=== PATIENT | male | born 1960 | race Caucasian/White ===

== ENCOUNTER 2023-12-04 01:55 | Emergency (ER) | payer BC, SELFPAY ==
[2023-12-04 01:56] VITALS: BP 145/83; PULSE 85; RESP 16; TEMP 36.1; O2SAT 97; BMI 29.8
--- NOTE | 2023-12-04 02:30 | XR_ITS ---
Patient: ARELIS FIELDS Facility:?[facility] Patient ID:?[id number] Site Patient ID:?[id number]. Site :?[id number] Study:?XRay-Chest PORTABLE-12/04/2023 3:08:14 AM Ordering Physician:MARA Final Report: INDICATION: Palpitations. TECHNIQUE: Chest 1 view. COMPARISON: None. FINDINGS: Cardiovascular and mediastinum: Heart size and vasculature are normal in caliber and appearance. Lungs and pleural spaces: Lungs are clear. No sign of infiltrate or mass. No sign of pleural effusion. No pneumothorax. Bones and soft tissues: No significant findings. IMPRESSION: Unremarkable chest. Dictated by Fortino Flower MD @ 12/04/2023 3:10:02 AM Signed by:?Fortino Flower MD @12/04/2023 3:10:02 AM (Electronic Signature)
--- NOTE | 2023-12-04 03:55 | ED_ITS ---
HPI - General Adult General Date Seen: 12/04/23 Chief complaint: Unspecified Complaint, Adult Stated complaint: Irregular Heartbeat Time Seen by Provider: 12/04/23 03:55 Source: patient and RN notes reviewed Mode of arrival: ambulatory Limitations: no limitations History of Present Illness HPI narrative: Note this note was dictated after patient was seen, labs ordered and return during expanse down time. Patient is a very pleasant gentleman with history of hyperlipidemia, hypertension who comes to the emergency room with a feeling of fluttering in his chest that he describes as an electrical glitch feeling.? Ash noted the onset of this last evening while at home at rest.? He describes a similar feeling greater than 10 years ago at which time caffeine was blamed.? After that event, he did have a stress test that was normal.? He does drink 2/3 of a pot of coffee during the day.? He denies any drug use, energy drinks.? He did have 1 beer last evening.? Ash has otherwise been well and denies any cough cold or congestion.? He does note that he has been dealing with some right sided low back pain. Back pain is been ongoing for almost a year. He does have a history of cervical arthritis.? He recently started gabapentin.? States he has only taken 2 doses. 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 Denies calf tenderness or history of DVT. Review of Systems Status of ROS: Reports: 10 or more systems reviewed and unremarkable except as noted in History and below Exam Narrative: Exam Narrative: Alert and oriented. No acute distress. Mentation normal. External ears eyes nose normal. Heart with regular rate and rhythm. I do not auscultate any murmurs rubs or additional heartbeats. Patient is stating that he is feeling something and I look on the monitor in appears to be normal sinus rhythm. Lungs are clear bilaterally. Abdomen soft nontender without pulsating mass. Lower extremities without edema. Pedal pulses are symmetrical and intact. Moving all extremities. Const: Vital Signs, click to edit/add: Vital Signs - 24 hr 12/04/23 05:34 Pulse Rate [Left] 84 Respiratory Rate 18 Blood Pressure [Ri ght Upper Arm] 148/95 H Pulse Oximetry 97 Oxygen Delivery Me thod Room Air Documenting provider has reviewed patient's vital signs: yes Course Course ED Course: Differential diagnosis includes but is not limited to cardiac arrhythmia, PVC, anxiety, pneumonia, PE, aortic dissection. Patient appears stable at this time with reassuring blood pressure 145/83 and a pulse of 85. classroom monitor appears to show a sinus rhythm. I do not see any evidence of arrhythmia. Patient with normal oxygen saturation at 97%. Will check EKG, troponin, chest x-ray, continue classroom monitor, CBC, comprehensive panel, TSH, magnesium. Reevaluation(s) Reevaluation #1: Patient continues to be in sinus rhythm. Initial troponin is negative. EKG reassuring with sinus rhythm. Her labs at this time include potassium of 3.9, creatinine of 1.1, LFTs within normal limits, hemoglobin of 14.3, negative troponin, TSH at 3.01, magnesium of 2.1 and a CRP within normal limits. Recheck EKG and troponin at this time. Vital Signs Vital signs: Initial Vital Signs Pulse Rate 84 12/04/23 05:34 Pulse Rhythm Regular 12/04/23 05:34 Respiratory Rate 18 12/04/23 05:34 Respiratory Effort Normal, Spontaneous 12/04/23 05:34 Respiratory Depth Normal 12/04/23 05:34 Blood Pressure 148/95 H 12/04/23 05:34 Blood Pressure Mean 112 H 12/04/23 05:34 Blood Pressure Position Semi-Fowlers 12/04/23 05:34 Pulse Oximetry 97 12/04/23 05:34 Oxygen Delivery Method Room Air 12/04/23 05:34 Vital Signs Pulse Rate 84 12/04/23 05:34 Respiratory Rate 18 12/04/23 05:34 Blood Pressure 148/95 H 12/04/23 05:34 Pulse Oximetry 97 12/04/23 05:34 Oxygen Delivery Method Room Air 12/04/23 05:34 Pulse Rate 84 12/04/23 05:34 Respiratory Rate 18 12/04/23 05:34 Blood Pressure 148/95 H 12/04/23 05:34 Pulse Oximetry 97 12/04/23 05:34 Oxygen Delivery Method Room Air 12/04/23 05:34 Medical Decision Making [place] Narrative Medical decision making narrative: 1. Palpitations-no irregularity noted on EKG your during cardiac monitoring. Troponins reassuring at this time. Magnesium within normal limits. D-dimer within normal limits. Recommend decreasing caffeine intake and increasing fluid intake. Follow-up with primary MD for cardiac monitoring such as with a ZIO patch for per primary MD recommendation. 2. Disposition-home at this time. Return for worsening symptoms and as needed. Medical Records Medical records reviewed: Yes I reviewed the patient's medical records Lab Data Lab results reviewed: Yes I reviewed the patient's lab results Labs: Lab Results 12/04/23 12/04/23 12/04/23 Range/Units 02:20 02:30 04:38 WBC 9.35 (4.50-11.00) K/uL RBC 4.59 (4.30-5.90) m/uL Hgb 14.3 (13.5-17.5) gm/dL Hct 41.8 (37.0-53.0) % MCV 91 (80-100) fL MCH 31 (26-34) pg MCHC 34 (32-36) gm/dL Plt Count 230 (140-440) K/uL Neut % (Auto) 49.7 (42.0-72.0) % Lymph % (Auto) 35.0 (20-44) % [place] % (Auto) 11.8 H (0.0-11.0) % Eos % (Auto) 1.9 (0.0-7.0) % Baso % (Auto) 0.2 (0.0-3.0) % Neut # (Auto) 4.60 (1.7-7.0) K/uL Lymph # (Auto) 3.30 H (0.90-2.90) K/uL [place] # (Auto) 1.10 H (0.00-0.90) K/UL Eos # (Auto) 0.20 (0.00-0.50) K/uL Baso # (Auto) 0.00 (0.00-0.30) K/uL Sodium 138 (135-149) mmol/L Potassium 3.9 (3.6-5.1) mmol/L Chloride 106 (96-114) mmol/L Carbon Dioxide 23 (20-32) mmol/L Anion Gap 9 (7-15) mEq/L BUN 28 (7-30) mg/dL Creatinine 1.1 (0.5-1.5) mg/dL Estimated GFR 76 ml/min Glucose 106 (60-115) mg/dL Calcium 9.0 (8.4-10.6) mg/dL Magnesium 2.1 (1.5-2.6) mg/dL Total Bilirubin 0.4 (0.1-1.5) mg/dL AST 36 H (12-35) U/L ALT 40 (4-50) U/L Alkaline Phosphatase 56 (40-150) U/L Troponin I < 0.01 L (0.01-0.04) ng/mL C-Reactive Protein < 0.5 L (0.5-1.0) mg/dL Total Protein 6.9 (6.0-8.3) g/dL Albumin 4.3 (3.3-5.0) g/dL TSH 3.010 (0.270-4.20) uIU/mL POC Troponin I 0.00 L (0.01-0.04) ng/ml Imaging Data Chest x-ray: Attestation: I have reviewed the pertinent imaging results. My impression: By my read no acute findings. Radiologist's impression: Cardiovascular and mediastinum: Heart size and vasculature are normal in caliber and appearance. Lungs and pleural spaces: Lungs are clear. No sign of infiltrate or mass. No sign of pleural effusion. No pneumothorax. Bones and soft tissues: No significant findings. IMPRESSION: Unremarkable chest. ECG Data Attestation: I personally reviewed and interpreted this ECG as follows: Interpretation: EKG by my read shows sinus rhythm at a rate of 80. I do not note any acute ST or T-wave changes. QT and MD intervals within normal limits. EKG 2. Shows normal sinus rhythm at a rate of 80. No acute ST or T-wave changes noted. Normal MD and QT intervals. Discharge Plan Discharge Clinical Impression: Heart palpitations Patient Disposition: Home, Self-Care Condition: Improved Additional Instructions: Decrease amount of caffeine intake. Increase good fluids such as water, Gatorade, Powerade. With your primary MD at [facility] for evaluation to see if you need placement of a heart monitor. Return to the emergency room for worsening symptoms. Follow Up/Referrals: Provider,Not a Local [Primary Care Provider] - Stand Alone Forms: [employer] Info Instructions
--- OUTSIDE RECORDS SUMMARY | 2023-12-04 04:27 | XMS_ITS | Referral Summary ---
Author Organization [place] Address [address] [place] [address] Care Team Providers Care Supercalender Operator Name Role Phone Oscar Alford MD Primary Care Provide r Oscar Alford MD Unavailable Encounters Date Type Department Care Team Description 10/28/2023 Travel 10/28/2023 8:30 AM CDT Office Visit [facility] [address] [place] [address] Manuel Jarvis PA-C Skin lesion (Primary Dx); Benign essential hypertension; Mixed hyperlipidemia from Last 3 Months Allergies Active Allergy Reactions Criticality Noted Date Comments Erythromycin 03/30/2000 fainting Medications Medication Sig Dispensed Refills Start Date End Date Status XIIDRA 5 % opthalmic solution Apply 1 drop to eye 2 times daily 12/24/2019 Active multivitamin (CENTRUM SILVER) tablet Take 1 tablet by mouth daily 06/04/2021 Active omeprazole (PRILOSEC) [address] capsuleIndications:Gas troesophageal reflux disease without esophagitis Take 1 capsule (20 mg) by mouth daily 90 capsule 3 12/24/2022 Active RESTASIS 0.05 % ophthalmic emulsion Place 1 drop into both eyes daily 02/11/2023 Active cyclobenzaprine (FLEXERIL) 10 MG tabletIndications:Spas m of muscle of lower back Take 1 tablet (10 mg) by mouth 3 times daily as needed for muscle spasms 30 tablet 05/06/2023 Active losartan (COZAAR) 50 MG tabletIndications:Ángel gn essential hypertension Take 1 tablet (50 mg) by mouth daily 90 tablet 1 10/28/2023 Active simvastatin (ZOCOR) 20 MG tabletIndications:Mixe d hyperlipidemia Take 1 tablet (20 mg) by mouth at bedtime 90 tablet 1 10/28/2023 Active Active Problems Problem Noted Date Diagnosed Date Elevated fasting glucose 09/20/2017 Gastroesophageal reflux dise ase, esophagitis presence not specified 09/20/2017 Overview: IMO Regulatory Load DEC 2019 Erectile dysfunction, unspecified erectile dysfu nction type 09/20/2017 Obesity (BMI 30.0-34.9) 09/20/2017 Encounter for counseling 11/18/2012 Overview: Patient states has Advance Directive and will bring in a copy to clinic. Problem list name updated by automated process. Provider to review ACP (advance care planning) 10/02/2011 Overview: Claustrophobia 08/29/2010 Overview: Isolated fear in small enclosed spaces-OK for xanax prn if needs PERS HX URINARY CALCULI(aka STONES) 10/30/2003 Overview: Passed kidney stone 1993?? Memory loss 04/05/2002 Mixed hyperlipidemia 04/13/2000 Inguinal hernia 03/30/2000 Overview: Problem list name updated by automated process. Provider to review Family history of malignant neoplasm Overview: lymphoid tissue Problem list name updated by automated process. Provider to review Resolved Problems Problem Noted Date Diagnosed Date Resolved Date Health Group Home 11/18/2012 09/12/2023 Overview: State Tier Level: Tier 1 Status: n/a Tube Roller: n/a See Letters for [facility] Care Plan Abnormal glucose 09/20/2017 Overview: Problem list name updated by automated process. Provider to review Immunizations Name Administration Dates Next Due TD,PF 7+ (Tenivac) 03/20/2020,03/30/1998 TDAP Vaccine (Boostrix) 08/27/2009 Social History Tobacco Use Types Packs/Day Years Used Date Smoking Tobacco: Former Cigarettes 0 03/30/1994 - 03/30/1999 Passive Smoke Exposure: Past Smokeless Tobacco: Never Tobacco Cessation:Counseling Given: Not Answered Alcohol Use Standard Drinks/Week Comments Yes 6 (1 standard drink = 0.6 oz pur e alcohol) AUDIT-C Answer Date Recorded Q1: How often do you have a drink containing alc ohol? 2-3 times a week 03/20/2020 Q2: How many drinks containi ng alcohol do you have on a typical day when you are drinking? 1 or 2 03/20/2020 Q3: How often do you have si x or more drinks on one occasion? Never 03/20/2020 PHQ-2 Answer Date Recorded PHQ-2 Score 0 05/06/2023 Adolescent Education Answer Date Record ed Getting School Help Needed Not on file 12/24 Sex and Gender Information Value Date Recorded Sex Assigned at Not on file Gender Identity Not on file Sexual Orientation Not on file Last Filed Vital Signs Vital Sign Reading Time Taken Comments Blood Pressure 138/80 10/28/2023 8:28 AM CDT Pulse 80 10/28/2023 8:28 AM CDT Temperature 36.6 ??C (97.9 ??F) 10/28/2023 8:28 AM CD T Respiratory Rate 20 12/24/2022 8:07 AM CDT Oxygen Saturation 96% 10/28/2023 8:28 AM CDT Inhaled Oxygen Concentration - - Weight 103.9 kg (229 lb) 10/28/2023 8:28 AM CDT Height 179.1 cm (5' 10.5) 04/08/2023 10:[address] Body Mass Index 32.39 04/08/2023 10:55 AM PAPER CONTROL CLERK Plan of Treatment Not on file Procedures Procedure Name Priority Date/Time Associated Diagnosis Comments LIPID PANEL (BFP) Routine 05/06/2023 2:1 2 PM PAPER CONTROL CLERK Mixed hyperlipidemia COMPREHENSIVE METABOLIC PANEL (BFP) Routine 12/24/2022 Mixed hyperlipidemia HEPATITIS C ANTIBODY Routine 07/12/2016 11:38 AM CDT Need for hepatitis C screening test COLONOSCOPY - HIM SCAN Routine 04/23/2016 from Last 3 Months or Most Recently Relevant to Health Maintenance Results * Lipid Panel (BFP) (05/06/2023 2:12 PM PAPER CONTROL CLERK) Cholesterol 148 0 - 199 mg/dL [facility]NAL Triglycerides 65 0 - 149 mg/dL [facility] HDL Cholesterol 63 40 - 150 mg/dL [facility] LDL Cholesterol Direct 72 0 - 130 mg/dL [facility] Cholesterol/HDL Ratio 2 0 - 5 [facility] Blood 05/06/2023 2:12 PM PAPER CONTROL CLERK Manuel Jarvis PA-C LAB - [facility] * (ABNORMAL) Comprehensive Metobolic Panel (BFP) (12/24/2022) Carbon Dioxide 25.0 20 - 32 mmol/L [facility] Creatinine 1.06 0.60 - 1.30 mg/dL [facility] INTERNAL Glucose 116(A) 60 - 99 mg/dL [facility] INTERNAL Sodium 138.9 135 - 146 mmol/L [facility] INTERNAL Potassium 4.41 3.5 - 5.3 mmol/L [facility] INTERNAL Chloride 103.7 98 - 110 mmol/L [facility] Protein Total 7.3 6.1 - 8.1 g/dL [facility] Albumin 4.8 3.6 - 5.1 g/dL [facility] Alkaline Phosphatase 52 33 - 130 U/L [facility] ALT 62(A) 0 - 32 U/L [facility] AST 28 0 - 35 U/L [facility] Bilirubin Total 1.5(A) 0.2 - 1.2 mg/dL [facility] Urea Nitrogen 15 7 - 25 mg/dL [facility] Calcium 9.5 8.6 - 10.3 mg/dL [facility] BUN/Creatinine Ratio 14.2 6 - 32 [facility] Globulin Calculated 2.5 1.9 - 3.7 [facility] A/G Ratio 1.9 1 - 2.5 [facility] Blood 12/24/2022 Oscar Alford MD LAB - [facility] * Hepatits C antibody ([facility]) (07/12/2016 11:38 AM CDT) HCV Antibody NON-REACTI VE NON-REACTI VE [facility] SIGNAL TO CUT OFF - [facility] 0.06 <1.00 [facility] Blood specimen (specimen) 07/12/2016 11:38 AM CDT 07/13/2016 5:55 AM CDT Narrative Resulting Agency Comment Performing Organization Information: ? CB ? [facility] ? [address] [place] [address] ? Rico Aleman M.D. Oscar Alford MD LAB - BLOOD O RDERABLES [facility] [address] [place] [address] * Colonoscopy - HIM Scan (04/23/2016) Provider Outside PROCEDURES from Last 3 Months or Most Recently Relevant to Health Maintenance Care Teams Supercalender Operator Relationship Specialty Start Date End Date Oscar Alford MD PCP - General Family Practice 11/12/11 Oscar Alford MD [address], [id number] [place] [address] Assigned PCP 09/24/18
--- OUTSIDE RECORDS SUMMARY | 2023-12-04 04:27 | XMS_ITS | Encounter Summary ---
Author Organization [place] Address [address] [place] [address] Care Team Providers Care Hvac R Tech Name Role Phone Oscar Alford MD Primary Care Provide r Oscar Alford MD Unavailable [phone] Reason for Referral * Consultation (Routine: Next available opening) - Pending Review Specialty Diagnoses / Procedures Referred By Lillie colindres Referred To Contact Dermatology Diagnoses Skin lesion Christen Jarvis PA-C [address] [place] [address] [facility] (REF'L) [address] [address] Referral ID Status Reason Start Date Expiration Date V isits Requested Visits Authorized [id number] Pending Review 10/28/2023 10/27/2024 1 1 Question Answer Additional Information: ongoing skin lesions in jean, spreading and worsening. Needs new consult Comments Please be aware that coverage of these services is subject to the terms and limitations of your health insurance plan. Call member services at your health plan with any benefit or coverage questions. Reason for Visit * Reason Comments Recheck Medication Refill medications, fasting today Referral Referral to dermatol ogist for his face and lesion on his lip Encounter Details Date Type Department Care Team (Latest Contact Info) Description 10/28/2023 8:30 AM CDT Office Visit [facility] [address] [place] [phone] Christen Jarvis PA-C [address] [place] [address] Skin lesion (Primary Dx); Benign essential hypertension; Mixed hyperlipidemia Social History Tobacco Use Types Packs/Day Years [...] on file Sexual Orientation Not on file documented as of this encounter Last Filed Vital Signs Vital Sign Reading Time Taken Comments Blood Pressure 138/80 10/28/2023 8:28 AM CDT Pulse 80 10/28/2023 8:28 AM CDT Temperature 36.6 ??C (97.9 ??F) 10/28/2023 8:28 AM CD T Respiratory Rate - - Oxygen Saturation 96% 10/28/2023 8:28 AM CDT Inhaled Oxygen Concentration - - Weight 103.9 kg (229 lb) 10/28/2023 8:28 AM CDT Height - - Body Mass Index 32.39 04/08/2023 10:55 AM DRAFTING CLERK documented in this encounter Progress Notes * Christen Jarvis PA-C - 10/28/2023 8:30 AM CDT Assessment & Plan Benign essential hypertension - stable, pt's at home readings are within range, refilled without change Low Na diet - losartan (COZAAR) 50 MG tablet Dispense: 90 tablet; Refill: 1 Mixed hyperlipidemia - stable, most recent lipid panel within range, refilled without change Recommend diet and exercise as able with current lifestyle - simvastatin (ZOCOR) 20 MG tablet Dispense: 90 tablet; Refill: 1 Skin lesion - ongoing without diagnosis by previous Shop Girl 7 years ago, will refer to new provider for new assessment - Adult Dermatology Shrimp Header Referral - To a [facility] Location (Use POS/Location) Follow up 6 months OV-labs at that time No follow-ups on file. Subjective Ash is a 62 year old, presenting for the following health issues: Recheck Medication (Refill medications, fasting today ) and Referral (Referral to weather algorithm scientist forhis face and lesion on his lip ) HPI Pt presents for hyperlipidemia and HTN follow-up. Diet and exercise could be better but are stable.Is hoping to retire within the next couple of years so he will be able to improve his diet and exercise then. Hyperlipidemia Follow-Up Are you regularly taking any medication or supplement to lower your cholesterol? Yes - taking 5-6 times a week-simvastatin Are you having muscle aches or other side effects that you think could be caused by your cholesterol lowering medication? Back pain is stable, going to PT without significant benefit Hypertension Follow-up Do you check your blood pressure regularly outside of the clinic? Yes - checking every now and thenbut will be in 120s/80s Are you following a low salt diet? No - is eating out a lot, but when he cooks at home, he is not using salt Are your blood pressures ever more than 140 on the top number (systolic) OR more than 90 on the bottom number (diastolic), for example 140/90? No Taking meds daily. Derm: Last evaluation with dermatology was ~7 years ago for lesions around his jean area. Feels as though lesions have not completely healed and are starting to spread. He has been picking at them and will notice yellow-tinged/clear liquid from the lesions with minimal bleeding after. Has tried cleaningwith hydrogen peroxide. Using Aquaphor and OTC topical antibacterial ointments once in a while without significant benefit. Would like to get in with different weather algorithm scientist to have reevaluated. Review of Systems Constitutional, neuro, ENT, endocrine, pulmonary, cardiac, gastrointestinal, genitourinary, musculoskeletal, integument and psychiatric systems are negative, except as otherwise noted. Objective BP 138/80 (BP Location: Right arm, Patient Position: Sitting, Cuff Size: Adult Large) Pulse 80 Temp 97.9 ??F (36.6 ??C) (Temporal) Wt 103.9 kg (229 lb) SpO2 96% BMI 32.39 kg/m?? Body mass index is 32.39 kg/m??. Physical Exam GENERAL: alert and no distress HENT: ear canals and TM's normal, nose and mouth without ulcers or lesions NECK: no adenopathy, no asymmetry, masses, or scars RESP: lungs clear to auscultation - no rales, rhonchi or wheezes CV: regular rate and rhythm, normal S1 S2, no S3 or S4, no murmur, click or rub, no peripheral edema ABDOMEN: soft, nontender, no hepatosplenomegaly, no masses and bowel sounds normal MS: no gross musculoskeletal defects noted, no edema SKIN: multiple erythematous scabbed lesions around the jean area NEURO: Normal strength and tone, mentation intact and speech normal PSYCH: mentation appears normal, affect normal/bright Signed Electronically by: Christen Jarvis PA-C documented in this encounter Nursing Notes * Adilia Herndon CMA - 10/28/2023 8:30 AM CDT Chief Complaint Patient presents with Recheck Medication Refill medications, fasting today Referral Referral to weather algorithm scientist for his face and lesion on his lip Pre-visit Screening: Immunizations: not up to date - shingrix at pharmacy Colonoscopy: is up to date Mammogram: NA Asthma Action Test/Plan: NA PHQ9: NA GAD7: NA Questioned patient about current smoking habits Pt. quit smoking some time ago. Ok to leave detailed message on voice mail for today's visit only Yes, phone # [phone] documented in this encounter Miscellaneous Notes * Addendum Note - Christen Jarvis PA-C - 10/28/2023 8:30 AM CDTAddended by: CHRISTEN JARVIS on: 10/28/2023 11:33 AM Modules accepted: Orders documented in this encounter Plan of Treatment Scheduled Referrals Name Type Priority Associated Diagnoses Order Schedule Adult Dermatology Shrimp Header Referral - To a [facility] Location (Use POS/Location) Referral Routine: Next available opening Skin lesion Ordered: 10/28/2023 documented as of this encounter Visit Diagnoses Diagnosis Skin lesion- Primary Unspecified disorder of skin and subcutaneous tissue Benign essential hypertension Essential hypertension, benign Mixed hyperlipidemia documented in this encounter Care Teams Hvac R Tech Relationship Specialty Start Date End Date Oscar Alford MD PCP - General Family Practice 11/12/11 Oscar Alford MD [address], [address] [address] Assigned PCP 09/24/18 documented as of this encounter
--- OUTSIDE RECORDS SUMMARY | 2023-12-04 04:27 | XMS_ITS | Encounter Summary ---
Author Organization [place] Address [facility] [place] [address] Care Team Providers Care Lining Maker Name Role Phone Oscar Alford MD Primary Care Provide r Courtney Dejesus PA-C Unavailable Oscar Alfodr MD Unavailable [phone] Reason for Visit * Reason Comments Medication Refill Encounter Details Date Type Department Care Team ([facility] st Contact Info) Description 12/08/2013 Refill [facility] [address] [place] [address] Nancy Maharaj MD [address] [place] [address] [address] [place], [place] [id number] Medication Refill Social History Tobacco Use Types Packs/Day Years Used Date Smoking Tobacco: Former Cigarettes 0 03/30/1994 - 03/30/1999 Smokeless Tobacco: Never Comments:smoked 1-2 cigarett es/day on & off x 5yrs Alcohol Use Standard Drinks/Week Comments Yes 1.7 (1 standard drink = 0.6 oz p ure alcohol) Sex and Gender Information Value Date Recorded Sex Assigned at Not on file Gender Identity Not on file Sexual Orientation Not on file documented as of this encounter Plan of Treatment Not on file documented as of this encounter Visit Diagnoses Not on filedocumented in this encounter Care Teams Lining Maker Relationship Specialty Start Date End Date Oscar Alford MD PCP - General Family Practice 11/12/11 Courtney Dejesus PA-C [facility] [address] [facility], [facility] [address] [place] [address] Assigned PCP 10/02/17 09/23/18 Oscar Alford MD [address] , [address] [address] Assigned PCP 09/24/18 documented as of this encounter
--- OUTSIDE RECORDS SUMMARY | 2023-12-04 04:27 | XMS_ITS | Clinical Summary ---
Author Organization [place] Address [address] [facility] [place] [address] Care Team Providers Care Bilingual Speech Therapist Name Role Phone Oscar Alford MD Primary Care Provide r Oscar Alford MD Unavailable Allergies Active Allergy Reactions Criticality Noted Date [...] Noted Date Diagnosed Date Resolved Date Health M[facility] 11/18/2012 09/12/2023 Overview: State Tier Level: Tier 1 Status: n/a Case Aide: n/a See Letters for [facility] Care Plan Abnormal glucose 09/20/2017 Overview: Problem list name updated by automated process. Provider to review Encounters Date Type Department Care Team Description 10/28/2023 8:30 AM CDT Office Visit [facility] [address] [place] [address] Manuel Jarvis PA-C Skin lesion (Primary Dx); Benign essential hypertension; Mixed hyperlipidemia 10/28/2023 Travel from Last 3 Months Immunizations Name Administration Dates Next Due TD,PF 7+ (Tenivac) 03/20/2020,03/30/1998 TDAP Vaccine (Boostrix) 08/27/2009 Family History Medical History Relation Comments Hyperlipidemia Brother 1 Cancer Father unknown Heart Disease Father valvular disease Diabetes Maternal Grandmother Cancer Mother Lymphoid, Tonsil Cancer - colorectal No family hx of Relation Status Comments Brother 1 Alive Brother 2 Alive Daughter Alive Father Maternal Grandmother Mother Son Alive Social History Tobacco Use Types Packs/Day Years [...] Body Mass Index 32.39 04/08/2023 10:55 AM MOLD CAR PUSHER Plan of Treatment Health Maintenance Due Date Last Done Comments ANNUAL REVIEW OF HM ORDERS 1960 CT COLONOGRAPHY 1960 FIT 1960 FLEX SIG 1960 sDNA (Cologuard) 1960 HIV SCREENING 12/20/1975 COVID-19 Vaccine (2 - season) 2023 08/23/2020 INFLUENZA VACCINE (#1) 2023 YEARLY PREVENTIVE VISIT 12/25/2023 12/25/19 23, 06/04/2021, 03/20/2020, Additional history exists ZOSTER IMMUNIZATION (1 of 2) 03/28/2024 Postponed from 2010 (Other) LIPID 05/06/2024 05/06/2023, 11/27, 06/04/2021, Additional history exists RSV VACCINE (1 - 1-dose 60+ series) 10/27/2024 Postponed from 2020 (Other) GLUCOSE 12/24/2025 12/24/2022, 05/26, 03/20/2020, Additional history exists COLONOSCOPY 04/23/2026 04/23/2016 COLORECTAL CANCER SCREENING 04/23/2026 ADVANCE CARE PLANNING 06/04/2026 06/04/2021 , 11/18/2012, 10/02/2011, Additional history exists DTAP/TDAP/TD IMMUNIZATION (3 - Td or Tdap) 03/20/2030 03/20/2020, 08/27/2009, 03/30/1998 HEPATITIS C SCREENING Completed 07/12/2016 PHQ-2 (once per calendar year) Completed 05/06/2023, 12/24/2022, 06/04/2021, Additional history exists HPV IMMUNIZATION Aged Out No longer e ligible based on patient's age to complete this topic MENINGITIS IMMUNIZATION Aged Out No l onger eligible based on patient's age to complete this topic Pneumococcal Vaccine: Pediatrics (0 to 5 Years) and At-Risk Patients (6 to 64 Years) Aged Out No longer eligible based on patient's age to complete this topic RSV MONOCLONAL ANTIBODY Aged Out No l onger eligible based on patient's age to complete this topic Procedures Procedure Name Priority Date/Time Associated Diagnosis Comments LIPID PANEL (BFP) Routine 05/06/2023 2:1 2 PM MOLD CAR PUSHER Mixed hyperlipidemia COMPREHENSIVE METABOLIC PANEL (BFP) Routine 12/24/2022 Mixed hyperlipidemia HEPATITIS C ANTIBODY Routine 07/12/2016 11:38 AM CDT Need for hepatitis C screening test COLONOSCOPY - HIM SCAN Routine 04/23/2016 from Last 3 Months or Most Recently Relevant to Health Maintenance Results * Lipid Panel (BFP) (05/06/2023 2:12 PM MOLD CAR PUSHER) Cholesterol 148 0 - 199 mg/dL [facility] INTERNAL Triglycerides 65 0 - 149 mg/dL [facility] INTERNAL HDL Cholesterol 63 40 - 150 mg/dL [facility] INTERNAL LDL Cholesterol Direct 72 0 - 130 mg/dL [facility] INTERNAL Cholesterol/HDL Ratio 2 0 - 5 [facility] INTERNAL Blood 05/06/2023 2:12 PM MOLD CAR PUSHER Manuel Jarvis PA-C LAB - NON-BEAKER BLO OD LABS [facility] INTERNAL * (ABNORMAL) Comprehensive [...] Blood 12/24/2022 Oscar Alford MD LAB - NON-STEFANI KER BLOOD LABS [facility] INTERNAL * Hepatits C antibody ([facility]) (07/12/2016 11:38 AM CDT) HCV Antibody NON-REACTI VE NON-REACTI VE [facility] SIGNAL TO CUT OFF - [facility] 0.06 <1.00 [facility] Blood specimen (specimen) 07/12/2016 11:38 AM CDT 07/13/2016 5:55 AM CDT Narrative Resulting Agency Comment Performing Organization Information: ? CB ? [facility] ? [address] [place] [address] ? Rico Aleman M.D. Oscar Alford MD LAB - BLOOD O RDERABLES [facility] [address] [place] [address] * Colonoscopy - HIM Scan (04/23/2016) Provider Outside PROCEDURES from Last 3 Months or Most Recently Relevant to Health Maintenance Care Teams Bilingual Speech Therapist Relationship Specialty Start Date End Date Oscar Alford MD PCP - General Family Practice 11/12/11 Oscar Alford MD [address] [address] Assigned PCP 09/24/18
--- OUTSIDE RECORDS SUMMARY | 2023-12-04 04:27 | XMS_ITS | Clinical Summary ---
Author Organization [facility] Address [address] [place] [address] Care Team Providers Care Production Support Consultant Name Role Phone Oscar Alford MD Primary Care Provider [phone] Source Comments You are receiving this document as you are listed as the primary care provider,follow-up provider, or the patient has been referred to you for consultation.This is in compliance with the Medicare and[facility] Campus[facility] EHR Incentive Program,which states Providers who transition their patient to another setting of careor provider of care or refers their patient to another provider of care shouldprovide summary care record for each transition of care or referral. [employer] Allergies Active Allergy Reactions Criticality Noted Date Comments Erythromycin 04/23/2013 PN: GI upset Medications Medication Sig Dispensed Refills Start Date End Date Status Multiple Vitamin (MULTI-VITAMIN OR) Take by mouth. 04/23/2013 Active Chap[place]-3 Fatty Acids (SUPER OMEGA 3 EPA/DHA OR) Take by mouth. 04/23/2013 Active omeprazole (PRILOSEC) 20 MG capsule Take 20 mg by mouth daily (every 24 hours). 04/23/2013 Active simvastatin (ZOCOR) 10 MG tablet Take 10 mg by mouth nightly. 04/23/2013 Active simvastatin (ZOCOR) 20 MG tablet Take 20 mg by mouth daily at bedtime. 12/02/2020 Active [facility] OMEPRAZOLE CPDR Take 20 mg by mouth daily (every 24 hours). 04/23/2013 10/03/2015 Discontinued(E rroneous Entry/Duplicat e/Other) Active Problems No known active problems Family History Medical History Relation Name Comments Cancer Mother Relation Name Status Comments Mother Social History Tobacco Use Types Packs/Day Years Used Date Smoking Tobacco: Never Smokeless Tobacco: Never Sex and Gender Information Value Date Recorded Sex Assigned at Not on file Gender Identity Not on file Sexual Orientation Not on file Last Filed Vital Signs Vital Sign Reading Time Taken Comments Blood Pressure 141/86 04/03/2017 11:28 AM CLINIC CMA Pulse 95 04/03/2017 11:28 AM CLINIC CMA Temperature 36.8 ??C (98.2 ??F) 04/03/2017 1 1:28 AM CLINIC CMA Respiratory Rate 18 04/03/2017 11:2 8 AM CLINIC CMA Oxygen Saturation 96% 04/03/2017 12: 03 PM CLINIC CMA with ambulation Inhaled Oxygen Concentration - - Weight 97.5 kg (215 lb) 11/01/2020 10:0 3 AM CDT Height 182.9 cm (6') 11/01/2020 10:03 AM CDT Body Mass Index 29.16 11/01/2020 10:03 AM CDT Plan of Treatment Health Maintenance Due Date Last Done Comments Colon Cancer Screening Plan Due 1960 Hep C Screening (Preventive Services) 1960 PSA Screening Discussion 1960 HIV Screening (Preventive Services) 1976 Adult Preventive Visit 1978 Cholesterol 12/20/1995 Zoster/Shingles (1 of 2) 2010 COVID-19 Vaccine (2 - 2022-2 4 season) 2023 08/23/2020 Influenza (#1) 2023 DTaP/Tdap/Td (3 - Tdap) 03/20/2030 03/20/20 20, 08/27/2009 HepA Aged Out No longer eligi ble based on patient's age to complete this topic HepB Aged Out No longer eligi ble based on patient's age to complete this topic Hib Aged Out No longer eligi ble based on patient's age to complete this topic IPV (Polio) Aged Out No longer eligi ble based on patient's age to complete this topic MCV4 Aged Out No longer eligi ble based on patient's age to complete this topic Pneumococcal Aged Out No longer eligi ble based on patient's age to complete this topic Care Teams Production Support Consultant Relationship Specialty Start Date End Date Oscar Alford MD [address], [address] [place] [address] PCP - General 06/10/14
--- OUTSIDE RECORDS SUMMARY | 2023-12-04 04:27 | XMS_ITS | Encounter Summary ---
Author Organization [employer] Address [address], [place] [address] Care Team Providers Care Ammonia Box Tender Name Role Phone Oscar Alford MD Primary Care Provider Reason for Visit * Reason Comments INJURY, THUMB Encounter Details Date Type Department Care Team (Late st Contact Info) Description 11/04/2020 Nurse Triage Careline [address] [place], [place] [id number] Unknown, Physician [address] [place], [place] [id number] INJURY, THUMB Social History Tobacco Use Types Packs/Day Years Used Date Smoking Tobacco: Never Smokeless Tobacco: Never Sex and Gender Information Value Date Recorded Sex Assigned at Not on file Gender Identity Not on file Sexual Orientation Not on file documented as of this encounter Nursing Notes * Phyllis Drummond RN - 11/04/2020 7:59 PM CDT Reason for Disposition ??? [1] Caller has NON-URGENT question AND [2] triager unable to answer question Answer Assessment - Initial Assessment Questions 1. MAIN CONCERN OR SYMPTOM: What is your main concern right now? What question do you have? What's the main symptom you're worried about? (e.g., fever, pain, redness, swelling) He is having pain with the exercises, hurts when it cracks when he tries to bend the knuckle , wanted him to squeeze the ball. Knuckle pops and noticeable pain, but not severe. 4. VISIT DATE: When were you seen? (Date) 11/01 5. VISIT DOCTOR: What is the name of the doctor taking care of you now? SJ Graham 7. VISIT TREATMENT: What treatment did you receive? (e.g., quirino, sutures, splint, cast) States he was given exercises which are painful to do 10. PAIN: Is there any pain? If so, ask: How bad is it? (Scale 1-10; or mild, moderate, severe) Moderate with bending the knuckle 11. FEVER: Do you have a fever? If so, ask: What is it, how was it measured and when did it start? denies 12. OTHER SYMPTOMS: Do you have any other symptoms? denies Protocols used: RECENT MEDICAL VISIT FOR INJURY FOLLOW-UP [id number] * Phyllis Drummond RN - 11/04/2020 7:50 PM CDT Patient/acute care physical therapist request: Input needed ongoing symptoms Specific Request: Ash states he called but never got an answer back and is concerned because hisfinger exercises cause him pain. States he is supposed to bend fingers into a ball, but bending theknuckle causes a cracking sound and pain. Denies fever, discoloration or swelling. Please advise. Thanks Phyllis Drummond RN 11/04/2020, 8:09 PM Clinician as patient is expecting a call back. Please call on cell as pt is traveling [phone] Verified patient identity: Yes Situation/Background (brief explanation of current symptoms/situation): Ash states he can hear and feel cracking when he is doing his thumb exercises and it cause prabhu moderate pain is is wondering if he is doing them correctly.Denies swelling, fever or discoloration. Reviewed with patient pertinent medical history (as it related to the call): Yes Reviewed with patient pertinent medications (as they relate to call): Yes Reviewed with patient pertinent allergies (as they relate to call): Yes * Helen Shankar - 11/04/2020 6:26 PM CDT Verified patient identity using three identifiers: Yes Caller's relationship to patient: Self At which care system or clinic is the patient normally seen? Other (Clinic Name)[facility] Select Member: No Symptoms Describe the reason for call/symptoms (include location and duration if applicable): pt has been seen at [facility] for a thumb injury and he is suppose to be exercising his thumb, pt states he can feel and hear a cracking sound as he is doing his exercises and is concerned he is doing it wrong. States he has not heard back from the clinic in regards to his concerns. Plan:The current callback time to speak with a nurse is 1.5hrs. If your symptoms change or worsen, or if you have not received a call back in the stated timeframe, please call us back documented in this encounter Plan of Treatment Not on file documented as of this encounter Visit Diagnoses Not on filedocumented in this encounter Care Teams Ammonia Box Tender Relationship Specialty Start Date End Date Oscar Alford MD [address], [address] [place] [address] PCP - General 06/10/14 documented as of this encounter
--- OUTSIDE RECORDS SUMMARY | 2023-12-04 04:27 | XMS_ITS | Encounter Summary ---
Author Organization [place] Address [facility] [place] [address] Care Team Providers Care Heel Sander Rubber Name Role Phone Shayy Fan MD Primary Care Provider [phone] Oscar Alford MD Primary Care Provide r Courtney Dejesus PA-C Unavailable Oscar Alford MD Unavailable Encounter Details Date Type Department Care Team (Late st Contact Info) Description 04/27/2002 [facility] [address] [place] [address] [address] [place] [address] [place] [id number] [place] [address] PERIPH VASCULAR DIS NEC (H); MIXED HYPERLIPIDEMIA Social History Tobacco Use Types Packs/Day Years Used Date Smoking Tobacco: Former Cigarettes 0 03/30/1994 - 03/30/1999 Passive Smoke Exposure: Past Smokeless Tobacco: Never Alcohol Use Standard Drinks/Week Comments Yes 6 (1 standard drink = 0.6 oz pur e alcohol) Sex and Gender Information Value Date Recorded Sex Assigned at Not on file Gender Identity Not on file Sexual Orientation Not on file documented as of this encounter Progress Notes * 04/27/2002 11:59 PM [facility] 04/27/2002 STRESS EKG REPORT Ash Buckley : 1960 The patient is a 41 year old year old male in for a Stress Echo due to peripheral artery disease diagnosis. Risk factors for coronary artery disease include:hyperlipidemia, sedentary life style and former smoker. T he patient was exercised according to the Alan Protocol, and achieved a total treadmill time of 11:3 0. At that time the test was stopped because the patient was having trouble keeping up with thetrea dmill. The resting pulse was 80 bpm, and the maximum heart rate achieved was 176. The predicted maxi mum for his age was 179 bpm. The resting blood pressure was 112/66 and the maximum was 160/76. Dur ing recovery, the pulse fell smoothly, but returned to only 106 by 5 minutes after exercise was stop ped. The resting EKG was within normal limits. The patient experienced no chest pain, syncope, nor dy spnea. Objectively, the tracing showed no ectopy, nor any significant ST-T wave changes. Pre and po st exercise echocardiograms were obtained, and appeared normal to the polysomnography technologist, but formal interpret ation is left to the Enamel Machine Operator. Assessment: 1) Negative subjective stress EKG 2) Negative objecti ve stress EKG 3) Echo report from Enamel Machine Operator is pending 4) Risk factors for coronary artery disease include:hyperlipidemia, sedentary life style (though now starting an exercise program). 5) Recommend ations for follow up include: Work on diet and aerobic exercise program & recheck lipids in 3-6 mo nths. should be on HMGCoA medication if not improving. Signed: Claude Newman MD documented in this encounter Plan of Treatment Not on file documented as of this encounter Procedures Procedure Name Priority Date/Time Associated Diagnosis Comments [facility] CARDIAC STRESS TSTDR [facility] ONLY Routine 04/27/2002 Periph Vascular Dis Nec (H) Mixed Hyperlipidemia documented in this encounter Results * CARDIAC STRESS TSTDR [place] ONLY (04/27/2002) Claude Newman MD SPECIAL IMAGING ST UDIES documented in this encounter Visit Diagnoses Diagnosis Other peripheral vascular disease(443.89) Other peripheral vascular disease Mixed hyperlipidemia documented in this encounter Care Teams Heel Sander Rubber Relationship Specialty Start Date End Date Shayy Fan MD PCP - General 05/21/04 11/11/11 Oscar Alford MD PCP - General Family Practice 11/12/11 Courtney Dejesus PA-C [facility] [address] [facility] [address] [place] [address] Assigned PCP 10/02/17 09/23/18 Oscar Alford MD [address] , [address] [address] Assigned PCP 09/24/18 documented as of this encounter
--- OUTSIDE RECORDS SUMMARY | 2023-12-04 04:27 | XMS_ITS | Encounter Summary ---
Author Organization [place] Address [address] [place], [place] [address] [address] Care Team Providers Care Greens Or Grounds Superintendent Name Role Phone Oscar Alford MD Primary Care Provide r Oscar Alford MD Unavailable [phone] Encounter Details Date Type Department Care Team (Latest Contact Info) Description 10/28/2023 Travel Social History Tobacco Use Types Packs/Day Years [...] on filedocumented in this encounter Care Teams Greens Or Grounds Superintendent Relationship Specialty Start Date End Date Oscar Alford MD PCP - General Family Practice 11/12/11 Oscar Alford MD [address] [address] Assigned PCP 09/24/18 documented as of this encounter
[2023-12-04 04:30] VITALS: BP 138/86; PULSE 76; RESP 16; O2SAT 98
[2023-12-04 05:07] LABS: Basophils Percent Auto 0.2 % (0.0-3.0); Eosinophils Percent Auto 1.9 % (0.0-7.0); Hematocrit 41.8 % (37.0-53.0); Hemoglobin* 14.3 gm/dL (13.5-17.5); Mean Corpuscular HGB Conc 34 gm/dL (32-36); Mean Corpuscular Hemoglobin 31 pg (26-34); Mean Corpuscular Volume 91 fL (80-100); Monocytes Percent Auto 11.8 % (0.0-11.0); Neutrophils Percent Auto 49.7 % (42.0-72.0); Platelet Count* 230 K/uL (140-440); Red Blood Count 4.59 m/uL (4.30-5.90); White Blood Count* 9.35 K/uL (4.50-11.00)
[2023-12-04 05:08] LABS: Slide Review Reflex No
[2023-12-04 05:09] LABS: Anion Gap 9 mEq/L (7-15); Blood Urea Nitrogen* 28 mg/dL (7-30); Carbon Dioxide* 23 mmol/L (20-32); Chloride* 106 mmol/L (96-114); Creatinine* 1.1 mg/dL (0.5-1.5); Estimated Glomerular Filt Rate 76 ml/min; Potassium* 3.9 mmol/L (3.6-5.1); Sodium* 138 mmol/L (135-149)
[2023-12-04 05:10] LABS: Alanine Aminotransferase* 40 U/L (4-50); Albumin* 4.3 g/dL (3.3-5.0); Alkaline Phosphatase* 56 U/L (40-150); Aspartate Amino Transferase* 36 U/L (12-35); Bilirubin Total* 0.4 mg/dL (0.1-1.5); Glucose* 106 mg/dL (60-115); Magnesium* 2.1 mg/dL (1.5-2.6); Total Protein* 6.9 g/dL (6.0-8.3)
[2023-12-04 05:11] LABS: C Reactive Protein* < 0.5 mg/dL (0.5-1.0); Troponin I* < 0.01 ng/mL (0.01-0.04)
[2023-12-04 05:34] VITALS: BP 148/95; PULSE 84; RESP 18; O2SAT 97
[2023-12-04 05:51] LABS: D Dimer Quantitative* 0.25 ug/ml (0.00-0.50)
== END 2023-12-04 06:00 | disposition home or self-care (01) ==
PROVIDERS: Emergency Provider Family Medicine
DX: R00.2 Palpitations (principal)
CPT/HCPCS: 36415; 71045; 80053; 83735; 84443; 84484; 85025; 85379; 86140; 86336; 93005; 99284; 99285